=== PATIENT | female | born 1980 | race Caucasian/White ===

== ENCOUNTER 2021-06-28 18:59 | Inpatient (IN) | payer BC ==
[2021-06-28] MEDS ORDERED: BENZOCAINE/MENTHOL (CHLORASEPTIC ) LOZENGE MM PRN (19:42)
[2021-06-28] MEDS ORDERED: BISMUTH SUBSALICYLATE 524 MG/30 ML PO PRN (19:42)
[2021-06-28] MEDS ORDERED: ONDANSETRON *ODT* 4 MG TABLET SL PRN (19:42)
[2021-06-28] MEDS ORDERED: ACETAMINOPHEN 325 MG TABLET (FP) PO PRN ×2 (19:42)
[2021-06-28] MEDS ORDERED: MAGNESIUM HYDROX 2400MG/30ML ORAL SUSPENSION 30 ML CUP PO PRN (19:42)
[2021-06-28] MEDS ORDERED: IBUPROFEN 400 MG TABLET (FP) PO PRN (19:42)
[2021-06-28] MEDS ORDERED: DICYCLOMINE HCL 10 MG CAPSULE PO PRN (19:42)
[2021-06-28] MEDS ORDERED: MAG HYDROX/AL HYDROX/SIMETH 30 ML UNIT-DOSE CUP PO PRN (19:42)
[2021-06-28] MEDS ORDERED: MAGNESIUM CITRATE 300 ML BOTTLE PO PRN (19:42)
[2021-06-28] MEDS ORDERED: LOPERAMIDE HCL 2 MG CAPSULE PO PRN (19:42)
[2021-06-28] MEDS ORDERED: methaDONE HCL 10 MG TABLET (FOR DETOX USE ONLY) PO ONE (19:43)
[2021-06-28] MEDS ORDERED: cloNIDine HCL 0.1 MG TABLET PO PRN (19:43)
[2021-06-28 20:02] VITALS: BMI 33.3
[2021-06-28] MEDS: MELATONIN 5 MG TABLETS PO PRN (21:59)
[2021-06-28] MEDS: THIAMINE HCL 100 MG TABLET (FP) PO SCH (21:59)
[2021-06-28] MEDS: METHOCARBAMOL 500 MG TABLET PO PRN (21:59)
[2021-06-28] MEDS: hydrOXYzine PAMOATE 25 MG CAPSULE (FP) PO PRN (22:33)
[2021-06-29] MEDS: hydrOXYzine PAMOATE 25 MG CAPSULE (FP) PO PRN ×3 (08:55→19:09)
[2021-06-29] MEDS: PANTOPRAZOLE 40 MG TABLET PO SCH (10:28)
[2021-06-29] MEDS: PRENATAL VITAMINS W/ FOLIC ACID TABLET (FP) PO SCH (10:28)
[2021-06-29] MEDS: METHOCARBAMOL 500 MG TABLET PO PRN (10:32)
[2021-06-29 11:00] LABS: HEMOGLOBIN 12.5 GM/dL (10.7-15.3); MCH 30.7 pg (25.7-33.7); MCHC 32.8 g/dl (32.0-36.0); MEAN CELL VOLUME 93.4 fl (80-96); MEAN PLT VOLUME 8.7 fl (7.5-11.1); PLATELET COUNT 435 10^3/uL (134-434); RBC 4.07 M/mm3 (3.60-5.2); RDW 13.8 % (11.6-15.6); WHITE BLOOD COUNT 12.5 K/mm3 (4.0-10.0)
[2021-06-29 12:34] LABS: ALBUMIN 4.5 g/dl (3.4-5.0); BLOOD UREA NITROGEN 25.6 mg/dL (7-18)
[2021-06-29 12:38] LABS: CREATININE 1.4 mg/dL (0.55-1.3)
[2021-06-29 12:39] LABS: TOT PROT 8.3 g/dl (6.4-8.2)
[2021-06-29 12:41] LABS: BILIRUBIN,TOTAL 0.8 mg/dL (0.2-1)
[2021-06-29] MEDS: THIAMINE HCL 100 MG TABLET (FP) PO SCH (22:31)
[2021-06-29] MEDS: traZODone HCL 100 MG TABLET (FP) PO SCH (22:31)
[2021-06-29] MEDS: MELATONIN 5 MG TABLETS PO PRN (22:31)
[2021-06-29] MEDS: SUVOREXANT 10 MG TABLET PO PRN (22:33)
[2021-06-30] MEDS: PRENATAL VITAMINS W/ FOLIC ACID TABLET (FP) PO SCH (09:40)
[2021-06-30] MEDS: hydrOXYzine PAMOATE 25 MG CAPSULE (FP) PO PRN ×2 (09:41→22:41)
[2021-06-30] MEDS: PANTOPRAZOLE 40 MG TABLET PO SCH (09:42)
[2021-06-30] MEDS ORDERED: methaDONE HCL 10 MG TABLET (FOR DETOX USE ONLY) PO ONE (10:00)
[2021-06-30] MEDS: MELATONIN 5 MG TABLETS PO PRN (22:37)
[2021-06-30] MEDS: THIAMINE HCL 100 MG TABLET (FP) PO SCH (22:37)
[2021-06-30] MEDS: traZODone HCL 100 MG TABLET (FP) PO SCH (22:38)
[2021-06-30] MEDS: SUVOREXANT 10 MG TABLET PO PRN (22:41)
[2021-07-01] MEDS: PANTOPRAZOLE 40 MG TABLET PO SCH (09:16)
[2021-07-01 09:47] VITALS: BP 128/74; PULSE 80; TEMP 98
== END 2021-07-01 09:51 | disposition home or self-care (01) | DRG 773 ==
LOC: YASAS 18:59 → Y6N 20:45 → UNDOADMIN 20:45
PROVIDERS: ADMIT Allergy & Immunology; ATTEND Allergy & Immunology
PROC: HZ2ZZZZ Detoxification Services for Substance Abuse Treatment (ICD-10-PCS; principal; 2021-06-28)
DX: F11.23 Opioid dependence with withdrawal (principal); F19.282 Other psychoactive substance dependence with psychoactive substance-induced sleep disorder; F12.10 Cannabis abuse, uncomplicated; F10.10 Alcohol abuse, uncomplicated; F32.A Depression, unspecified; F43.10 Post-traumatic stress disorder, unspecified; M54.50 Low back pain, unspecified; G89.29 Other chronic pain; Z62.810 Personal history of physical and sexual abuse in childhood; Z91.410 Personal history of adult physical and sexual abuse; Z87.891 Personal history of nicotine dependence; Z88.1 Allergy status to other antibiotic agents
CPT/HCPCS: 36415; 80053; 85027; 86780; C9803-CS; J0735; U0003; U0005

== ENCOUNTER 2021-10-30 14:48 | Inpatient (IN) | payer BC ==
[2021-10-30 15:59] VITALS: BMI 32.3
[2021-10-30] MEDS ORDERED: P-EPHED 60MG/TRIPROLIDI 2.5MG TABLET PO PRN (18:14)
[2021-10-30] MEDS ORDERED: MAGNESIUM CITRATE 300 ML BOTTLE PO PRN (18:14)
[2021-10-30] MEDS ORDERED: IBUPROFEN 400 MG TABLET (FP) PO PRN (18:14)
[2021-10-30] MEDS ORDERED: guaiFENesin 200 MG/10 ML 10 ML UNIT-DOSE CUPS PO PRN (18:14)
[2021-10-30] MEDS ORDERED: MAG HYDROX/AL HYDROX/SIMETH 30 ML UNIT-DOSE CUP PO PRN (18:14)
[2021-10-30] MEDS ORDERED: BENZOCAINE/MENTHOL (CHLORASEPTIC ) LOZENGE MM PRN (18:14)
[2021-10-30] MEDS ORDERED: ACETAMINOPHEN 325 MG TABLET (FP) PO PRN ×2 (18:14)
[2021-10-30] MEDS ORDERED: ONDANSETRON *ODT* 4 MG TABLET SL PRN (18:14)
[2021-10-30] MEDS ORDERED: BISMUTH SUBSALICYLATE 524 MG/30 ML PO PRN (18:14)
[2021-10-30] MEDS ORDERED: MAGNESIUM HYDROX 2400MG/30ML ORAL SUSPENSION 30 ML CUP PO PRN (18:14)
[2021-10-30] MEDS ORDERED: LOPERAMIDE HCL 2 MG CAPSULE PO PRN (18:14)
[2021-10-30] MEDS ORDERED: DICYCLOMINE HCL 10 MG CAPSULE PO PRN (18:14)
[2021-10-30] MEDS ORDERED: methaDONE HCL 10 MG TABLET (FOR DETOX USE ONLY) PO ONE (18:15)
[2021-10-30] MEDS ORDERED: methaDONE HCL 10 MG TABLET (FOR DETOX USE ONLY) ONE (19:07)
[2021-10-30] MEDS ORDERED: hydrOXYzine PAMOATE 25 MG CAPSULE (FP) PO ONE (19:07)
[2021-10-30] MEDS: hydrOXYzine PAMOATE 25 MG CAPSULE (FP) PO PRN (19:12)
[2021-10-30] MEDS: cloNIDine HCL 0.1 MG TABLET PO PRN (22:10)
[2021-10-30] MEDS: MELATONIN 5 MG TABLETS PO PRN ×2 (22:10→22:45)
[2021-10-30] MEDS: THIAMINE HCL 100 MG TABLET (FP) PO SCH (22:10)
[2021-10-30] MEDS: METHOCARBAMOL 500 MG TABLET PO PRN (22:11)
[2021-10-31] MEDS: hydrOXYzine PAMOATE 25 MG CAPSULE (FP) PO PRN ×2 (06:19→17:30)
[2021-10-31] MEDS: PANTOPRAZOLE 40 MG TABLET PO SCH (06:19)
[2021-10-31] MEDS: cloNIDine HCL 0.1 MG TABLET PO PRN ×2 (06:19→22:05)
[2021-10-31] MEDS: PRENATAL VITAMINS W/ FOLIC ACID TABLET (FP) PO SCH (10:23)
[2021-10-31] MEDS: METHOCARBAMOL 500 MG TABLET PO PRN ×2 (10:23→21:05)
[2021-10-31 10:49] LABS: CALCIUM 9.6 mg/dL (8.5-10.1)
[2021-10-31 10:50] LABS: BLOOD UREA NITROGEN 9.9 mg/dL (7-18)
[2021-10-31 10:54] LABS: BILIRUBIN,TOTAL 0.4 mg/dL (0.2-1); HEMATOCRIT 36.9 % (32.4-45.2); HEMOGLOBIN 12.3 GM/dL (10.7-15.3); MCH 31.6 pg (25.7-33.7); MCHC 33.2 g/dl (32.0-36.0); MEAN PLT VOLUME 8.3 fl (7.5-11.1); PLATELET COUNT 425 10^3/uL (134-434); RBC 3.88 M/mm3 (3.60-5.2); RDW 13.4 % (11.6-15.6); TOT PROT 7.1 g/dl (6.4-8.2); WHITE BLOOD COUNT 8.2 K/mm3 (4.0-10.0)
[2021-10-31 10:55] LABS: ALBUMIN 3.9 g/dl (3.4-5.0)
[2021-10-31 10:58] LABS: CREATININE 0.8 mg/dL (0.55-1.3)
[2021-10-31] MEDS: IBUPROFEN 600 MG TABLET (FP) PO PRN (17:30)
[2021-10-31] MEDS ORDERED: traZODone HCL 100 MG TABLET (FP) PO SCH (22:00)
[2021-10-31] MEDS: diphenhydrAMINE HCL 25 MG CAPSULE (FP) PO SCH (22:04)
[2021-10-31] MEDS: THIAMINE HCL 100 MG TABLET (FP) PO SCH (22:04)
[2021-10-31] MEDS: MELATONIN 5 MG TABLETS PO PRN (22:04)
[2021-10-31] MEDS: traZODone HCL 50 MG TABLET (FP) PO SCH (22:04)
[2021-11-01] MEDS: METHOCARBAMOL 500 MG TABLET PO PRN ×3 (05:43→18:54)
[2021-11-01] MEDS: hydrOXYzine PAMOATE 25 MG CAPSULE (FP) PO PRN (05:44)
[2021-11-01] MEDS: PANTOPRAZOLE 40 MG TABLET PO SCH (06:03)
[2021-11-01] MEDS ORDERED: methaDONE HCL 10 MG TABLET (FOR DETOX USE ONLY) PO ONE (10:00)
[2021-11-01] MEDS: PRENATAL VITAMINS W/ FOLIC ACID TABLET (FP) PO SCH (10:38)
[2021-11-01] MEDS: IBUPROFEN 600 MG TABLET (FP) PO PRN (10:41)
[2021-11-01 21:36] VITALS: RESP 18
[2021-11-01] MEDS: MELATONIN 5 MG TABLETS PO PRN (22:08)
[2021-11-01] MEDS: diphenhydrAMINE HCL 25 MG CAPSULE (FP) PO SCH (22:08)
[2021-11-01] MEDS: THIAMINE HCL 100 MG TABLET (FP) PO SCH (22:08)
[2021-11-01] MEDS: traZODone HCL 50 MG TABLET (FP) PO SCH (22:08)
[2021-11-01] MEDS: cloNIDine HCL 0.1 MG TABLET PO PRN (22:11)
[2021-11-02] MEDS: PANTOPRAZOLE 40 MG TABLET PO SCH (06:03)
[2021-11-02 07:07] VITALS: BP 100/63; PULSE 60; TEMP 97.1
== END 2021-11-02 10:50 | disposition home or self-care (01) | DRG 773 ==
LOC: YASAS 14:48 → Y3N 18:23
PROVIDERS: ADMIT Allergy & Immunology; ATTEND Psychiatry & Neurology Psychiatry
PROC: HZ2ZZZZ Detoxification Services for Substance Abuse Treatment (ICD-10-PCS; principal; 2021-10-30)
DX: F11.23 Opioid dependence with withdrawal (principal); F12.10 Cannabis abuse, uncomplicated; F43.10 Post-traumatic stress disorder, unspecified; G47.00 Insomnia, unspecified; Z87.891 Personal history of nicotine dependence; Z88.1 Allergy status to other antibiotic agents
CPT/HCPCS: 36415; 80053; 81025; 85027; 86780; 87811; C9803-CS; Q0162; U0003; U0005